=== PATIENT | female | born 1980 | race Hispanic/Latino ===

== ENCOUNTER 2017-01-30 10:28 | Day surgery (SDC) | payer MEDICAID ==
[2017-01-25 08:39] VITALS: BMI 23.8
[2017-01-30] MEDS ORDERED: Propofol 10 mg/ml Inj (20 ML) ONE ×2 (12:15→12:26)
[2017-01-30] MEDS ORDERED: Lactated Ringer's 1,000 ML IV SCH (12:30)
[2017-01-30 14:20] VITALS: BP 120/74; RESP 18; TEMP 97.9
[2017-01-30 14:26] VITALS: PULSE 73; O2SAT 99
== END 2017-01-30 14:42 | disposition home or self-care (01) ==
LOC: ENDO 10:28
PROVIDERS: ATTEND Internal Medicine Gastroenterology
DX: K29.70 Gastritis, unspecified, without bleeding (principal); B96.81 Helicobacter pylori [H. pylori] as the cause of diseases classified elsewhere; K20.9 Esophagitis, unspecified; K64.8 Other hemorrhoids; K62.5 Hemorrhage of anus and rectum
CPT/HCPCS: 43239; 45378; 84703; 88305; 88312; 88342; J2001; J2704; J3010; J7040; J7120